=== PATIENT | female | born 1990 | race Asian ===

== ENCOUNTER 2018-09-25 06:20 | Day surgery (SDC) | payer OTHER ==
[2018-09-25] MEDS ORDERED: GLYCOPYRROLATE 0.4 MG INJ ×2 (09:26→10:09)
[2018-09-25] MEDS ORDERED: NEOSTIGMINE 3 MG/3 ML SYRINGE ×2 (09:26→10:09)
[2018-09-25] MEDS ORDERED: LIDOCAINE 2% (SDV) 5 ML INJ (09:26)
[2018-09-25] MEDS ORDERED: PROPOFOL 20 ML (09:26)
[2018-09-25] MEDS ORDERED: MEPERIDINE 100 MG INJ (09:26)
[2018-09-25] MEDS ORDERED: SUCCINYLCHOLINE CHLORIDE 100 MG/5 ML SYG IV (09:26)
[2018-09-25] MEDS ORDERED: ROCURONIUM 50 MG INJ (09:26)
[2018-09-25] MEDS ORDERED: DIPHENHYDRAMINE 50 MG INJ IV (09:30)
[2018-09-25] MEDS ORDERED: MIDAZOLAM 1 MG/ML 2 ML INJ IV (09:30)
[2018-09-25] MEDS ORDERED: OXYCODONE/ACETAMINOPHEN (5/325) TAB PO ×2 (09:30)
[2018-09-25] MEDS ORDERED: HYDROmorphONE 1 MG/5 ML IV SYRINGE IV ×2 (09:30)
[2018-09-25] MEDS ORDERED: FENTAnyl 50 MCG/ML VIAL IV ×2 (09:30)
[2018-09-25] MEDS ORDERED: METOCLOPRAMIDE 10 MG INJ IV (09:30)
[2018-09-25] MEDS ORDERED: ONDANSETRON 4 MG INJ (09:50)
[2018-09-25] MEDS ORDERED: CEFAZOLIN 1 GM INJ (09:50)
[2018-09-25] MEDS ORDERED: METOCLOPRAMIDE 10 MG INJ (09:50)
[2018-09-25] MEDS ORDERED: ACETAMINOPHEN 325 MG TAB PO (10:30)
[2018-09-25] MEDS: FENTAnyl 50 MCG/ML VIAL IV (10:48)
[2018-09-25] MEDS: ONDANSETRON 4 MG INJ IV (10:48)
[2018-09-25] MEDS: MEPERIDINE 25 MG INJ IV (11:08)
[2018-09-25] MEDS: HYDROmorphONE 1 MG/5 ML IV SYRINGE IV (11:08)
== END 2018-09-25 12:45 | disposition home or self-care (01) ==
LOC: SDS 06:20
DX: N72 Inflammatory disease of cervix uteri (principal); N80.9 Endometriosis, unspecified
CPT/HCPCS: 58558; 84702; 86850; 86900; 86901; 88305